=== PATIENT | male | born 1955 | race Caucasian/White ===

== ENCOUNTER → 2017-12-30 16:49 | Outpatient (CLI) | payer OTHER, SELFPAY ==
--- NOTE | 2017-12-30 16:49 | DT_ITS ---
This patient was seen during an EMR downtime December 27, 2017 - January 03, 2018. This patient may have a combination of paper and electronic documentation or all paper documentation. All documentation is viewable within the e-chart portion of [facility] for each patient visit.
--- NOTE | 2017-12-30 16:49 | DT_ITS ---
This patient was seen during an EMR downtime December 27, 2017 - January 03, 2018. This patient may have a combination of paper and electronic documentation or all paper documentation. All documentation is viewable within the e-chart portion of [facility] for each patient visit.
== END ==
PROVIDERS: Visit Provider Anesthesiology Pain Medicine
DX: F11.20 Opioid dependence, uncomplicated (principal)

== ENCOUNTER → 2019-06-27 17:05 | Outpatient (CLI) | payer OTHER, SELFPAY ==
[2019-06-27 17:49] LABS: Amphetamine Urine VISTA NEGATIVE (<1000 ng/mL); Barbiturate Urine VISTA NEGATIVE (< 200 ng/mL); Benzodiazepine Urine VISTA NEGATIVE (< 200 ng/mL); Cocaine Urine VISTA NEGATIVE (< 300 ng/mL); Ecstacy Urine VISTA NEGATIVE (< 500 ng/mL); Methadone Urine VISTA NEGATIVE (< 300 ng/mL); PCP Urine VISTA NEGATIVE (< 25 ng/mL); THC Urine VISTA NEGATIVE (< 50 ng/mL); Vista UDS pH Range 6
== END ==
PROVIDERS: Family Provider Family Medicine; PCP Family Medicine; Referring Provider Anesthesiology Pain Medicine; Visit Provider Anesthesiology Pain Medicine
DX: F11.20 Opioid dependence, uncomplicated (principal)
CPT/HCPCS: 80307

== ENCOUNTER → 2020-03-04 14:54 | Outpatient (CLI) | payer OTHER, SELFPAY ==
[2020-03-04 16:21] LABS: Amphetamine Urine VISTA NEGATIVE (<1000 ng/mL); Barbiturate Urine VISTA NEGATIVE (< 200 ng/mL); Benzodiazepine Urine VISTA NEGATIVE (< 200 ng/mL); Cocaine Urine VISTA NEGATIVE (< 300 ng/mL); Ecstacy Urine VISTA NEGATIVE (< 500 ng/mL); Methadone Urine VISTA NEGATIVE (< 300 ng/mL); PCP Urine VISTA NEGATIVE (< 25 ng/mL); THC Urine VISTA NEGATIVE (< 50 ng/mL); Vista UDS pH Range 6
== END ==
PROVIDERS: PCP Family Medicine; Referring Provider Anesthesiology Pain Medicine; Visit Provider Anesthesiology Pain Medicine
DX: F11.20 Opioid dependence, uncomplicated (principal)
CPT/HCPCS: 80307

== ENCOUNTER → 2020-12-02 11:02 | Outpatient (CLI) | payer OTHER, SELFPAY ==
[2020-12-02 13:13] LABS: Amphetamine Urine VISTA NEGATIVE (<1000 ng/mL); Barbiturate Urine VISTA NEGATIVE (< 200 ng/mL); Benzodiazepine Urine VISTA NEGATIVE (< 200 ng/mL); Cocaine Urine VISTA NEGATIVE (< 300 ng/mL); Ecstacy Urine VISTA NEGATIVE (< 500 ng/mL); Methadone Urine VISTA NEGATIVE (< 300 ng/mL); PCP Urine VISTA NEGATIVE (< 25 ng/mL); THC Urine VISTA NEGATIVE (< 50 ng/mL); Vista UDS pH Range 6
== END ==
PROVIDERS: PCP Family Medicine; Referring Provider Anesthesiology Pain Medicine; Visit Provider Anesthesiology Pain Medicine
DX: F11.20 Opioid dependence, uncomplicated (principal)
CPT/HCPCS: 80307

== ENCOUNTER → 2022-09-08 | Outpatient (CLI) | payer OTHER, SELFPAY ==
[2022-09-08 17:15] LABS: Amphetamine Urine VISTA NEGATIVE (<1000 ng/mL); Barbiturate Urine VISTA NEGATIVE (< 200 ng/mL); Benzodiazepine Urine VISTA NEGATIVE (< 200 ng/mL); Cocaine Urine VISTA NEGATIVE (< 300 ng/mL); Ecstacy Urine VISTA NEGATIVE (< 500 ng/mL); Methadone Urine VISTA NEGATIVE (< 300 ng/mL); PCP Urine VISTA NEGATIVE (< 25 ng/mL); THC Urine VISTA NEGATIVE (< 50 ng/mL); Vista UDS pH Range 6
== END | disposition home or self-care (01) ==
PROVIDERS: PCP Family Medicine; Visit Provider Anesthesiology Pain Medicine
DX: F11.20 Opioid dependence, uncomplicated (principal)
CPT/HCPCS: 80307

== ENCOUNTER → 2023-08-04 | Outpatient (CLI) | payer OTHER, SELFPAY ==
--- OUTSIDE RECORDS SUMMARY | 2023-08-04 17:08 | XMS RPT_ITS | CCD ---
Author Name Unknown Address [address] [place] [address] Organization [facility] Care Team Providers Care Vp Public Relations Name Role Phone SHAYNE RIBEIRO Unavailable Unavailable BLSHAYNE TIM Unavailable Unavailable Unavailable Primary Care Provider Shayne Ruiz DO Primary Care Provider MARY LAMBERT Attending Cee vailable MATMARY NOLAN Attending Cee vailable SHAYNE RIBEIRO Admitting Unavailable MATURMARY Monae Attending Cee vailable SHAYNE RIBEIRO Referring Unavailable NOELLE, SHAYNE Wing Primary Care Unavailable RANDALLUMERSHAYNE Primary Care Unavailable SHAYNE RIBEIRO Attending Unavailable BLUMER, SHAYNE Wing Referring Unavailable BLUMER, SHAYNE Wing Referring Unavailable BLUMER, SHAYNE Wing Admitting Unavailable SHAYNE RIBEIRO Primary Care Unavailable SHAYNE RIBEIRO Attending Unavailable SHAYNE RIBEIRO Referring Unavailable SHAYNE RIBEIRO Primary Care Unavailable Allergies Allergy Classification Reported Allergen(s) Allergy Type Date of Onset Reaction(s) Facility (3 sources) Iodine; Translations: [IODINE] Drug Allergy 0 [facility] (1 source) CT: IODINATED CONTRAST- ORAL AND IV DYE; Translations: [CT: IODINATED CONTRAST- ORAL AND IV DYE] Propensity to adverse reactions to drug (disorder) 2 [facility] Three Repository Medications Current Medications Medication Drug Class(es) Dates Sig (Normalized) Sig (Original) acetaminophen 325 mg / oxyCODONE hydrochloride 5 mg oral tablet (2 sources) Opioid Agonist Start: 07-16-2021 oxyCODONE-acetam inophen (PERCOCET) 5-325 mg per tablet amLODIPine 5 mg oral tablet (2 sources) Dihydropyridine Calcium Channel Mana Start: 07-24-2021 amLODIPine (NORVASC) 5 MG tablet finasteride 5 mg oral tablet (2 sources) 5-alpha Reductase Inhibitor Start: 07-24-2021 finasteride (PROSCAR) 5 mg tablet ibuprofen 200 mg oral tablet (2 sources) Nonsteroidal Anti-inflammatory Drug take 1 tablet by mouth every six hours as needed for pain ibuprofen (ADVIL,MOTRIN) 200 MG tablet Take 200 mg by mouth every 6 (six) hours as needed for pain . 0 Active losartan potassium 100 mg oral tablet (2 sources) Angiotensin 2 Receptor Mana Start: 07-24-2021 losartan (COZAAR) 100 MG tablet morphine sulfate 15 mg extended release oral tablet (2 sources) Opioid Agonist Start: 07-16-2021 morphine (MS CONTIN) 15 MG 12 hr tablet omeprazole 20 mg delayed release oral capsule (2 sources) Proton Pump Inhibitor take 1 capsule by mouth once daily omeprazole (PRILOSEC) 20 MG capsule Take 20 mg by mouth daily . 0 Active tamsulosin hydrochloride 0.4 mg oral capsule (2 sources) alpha-Adrenergic Mana Start: 07-24-2021 tamsulosin (FLOMAX) 0.4 mg capsule Problems Problem Classification Problem Date Documented Date Episodic/Chronic Abdominal pain (5 sources) Right upper quadrant pain; Translations: [Right upper quadrant pain] Onset: 07-31-2021 Episodic Esophageal disorders (1 source) Gastroesophageal reflux disease; Translations: [Gastro-esophageal reflux disease without esophagitis] Chronic Essential hypertension (1 source) Hypertensive disorder; Translations: [Essential (primary) hypertension] Chronic Genitourinary symptoms and ill-defined conditions (2 sources) Hematuria, unspecified; Translations: [Hematuria, unspecified] Onset: 06-18-2023 Episodic Other screening for suspected conditions (not mental disorders or infectious disease) (4 sources) Raised prostate specific antigen; Translations: [Elevated prostate specific antigen [PSA]] Onset: 07-31-2021 Episodic Results Test Name Value Interpretation Reference Range Facil ity Vital Signs Date Time Vital Sign Value Performing Clinician Rayray harding 07-30-2021 13:17-0500 Body weight 92.99 kg Mary Lambert MD Work Phone: [facility] Encounters Encounter Date Encounter Type Care Provider Facility Start: 06-18-2023 End: 06-19-2023 ambulatory SHAYNE RIBEIRO [facility] Start: 04-09-2023 End: 04-13-2023 Encounter for general adult medical examination without abnormal findings SHAYNE RIBEIRO [facility] Start: 04-09-2023 End: 04-13-[address] [facility] Start: 07-30-2021 End: 07-30-2021 Orders Only Mary Lambert MD Work Phone: [facility] Plan of Treatment Date Care Activity Detail Author Start: 09-26-2021 End: 09-26-2021 Admission to same day surgery center 09/26/2021 Surgery Mary Lambert MD [address] [place] [address] COLONOSCOPY with possible biopsy [facility] Payers Date Payer Category Payer Unknown [employer] PPO [id number] 2018-Present [phone] [address] [place] [address] [id number] 2018 Unknown [id number] 2017 Private Health Insurance [id number] 1955 Unknown [id number] 03 1955 Unknown [id number] 03 1955 Unknown [id number] 03 1955 Unknown [id number] 03 1955 Unknown [id number] 03 Social History Date Type Detail Facility Tobacco smoking status WAIS Unknown if ev er smoked [facility] Start: 1955 Sex Assigned At Not on [facility] 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 [facility] Exposure to SARS-CoV -2 (event) Not sure [facility] History of Present illness Narrative 07-30-2021 Mary Lambert MD - 07/30/2021 4:05 PM EST Note Date & Type Note Facility 07-30-2021 History of Presen t illness Narrative [facility] [phone] Timothy Torre History: HISTORY OF PRESENT ILLNESS This 66-year-old gentleman has been having discomfort in the right upper quadrant area for the last 2 years. This pain is just below the right ribcage or in the right lower ribcage. The pain comes and goes and sometimes becomes more frequent. The pain is more so in the morning. The pain does not appear to change with food intake. He has no nausea, denies any vomiting. He says that he was treated for H. pylori many years ago. Has heartburn with reflux symptoms for some time. His bowel movements have been on the constipated side. Denies having any black tarry stools. Denies seeing any blood with his stools. SOCIAL HISTORY He does not smoke, does not take alcohol. FAMILY HISTORY Shows that his father had fatty liver. PAST MEDICAL HISTORY Reviewed with the patient. PAST SURGERY Reviewed with the patient. MEDICATIONS Reviewed with patient. DIAGNOSTIC DATA His LFTs done in January 2020 were normal. His PSA was 7.2 at that time. He says that he has had followup PSA, and it is less than this. Note: I do not have the report of this. He has been seen by [facility]rology [facility] at [facility]. He says that he had a colonoscopy done about 10 years ago. IMPRESSION 1. Right upper quadrant pain, etiology unclear at this time. 2. Hypertension. 3. Elevated PSA. 4. Gastroesophageal reflux disease. ADVICE 1. Will advise him to take omeprazole 20 mg twice a day. 2. Will schedule him for upper endoscopy and a screening colonoscopy. 3. Will get an ultrasound of the right upper quadrant to check the liver and the duct system. Past Medical History: Diagnosis Date Hypertension Past Surgical History: Procedure Laterality Date BACK SURGERY CHOLECYSTECTOMY Allergies Allergen Reactions Iodine Hives Prior to Admission medications Medication Sig Start Date End Date Taking? Authorizing Provider amLODIPine (NORVASC) 5 MG tablet 07/24/21 Yes Historical Provider, finasteride (PROSCAR) 5 mg tablet 07/24/21 Yes Historical Provider, ibuprofen (ADVIL,MOTRIN) 200 MG tablet Take 200 mg by mouth every 6 (six) hours as needed for pain . Yes Historical Provider, losartan (COZAAR) 100 MG tablet 07/24/21 Yes Historical Provider, morphine (MS CONTIN) 15 MG 12 hr tablet 07/16/21 Yes Historical Provider, omeprazole (PRILOSEC) 20 MG capsule Take 20 mg by mouth daily . Yes Historical Provider, oxyCODONE-acetaminophen (PERCOCET) 5-325 mg per tablet 07/16/21 Yes Historical Provider, tamsulosin (FLOMAX) 0.4 mg capsule 07/24/21 Yes Historical Provider, No family history on file. Review of Systems Constitutional: Negative for unexpected weight change. Respiratory: Negative. Cardiovascular: Negative. Musculoskeletal: Positive for back pain. Neurological: Negative. Psychiatric/Behavioral: Negative. has no history on file for alcohol use. has no history on file for tobacco use. Wt 93 kg (205 lb) 93 kg (205 lb) There is no height or weight on file to calculate BMI. Physical Exam Constitutional: Patient is oriented to person, place, and time. Patient appears well Head: Normocephalic and atraumatic. Eyes: Pupils are equal, round, and reactive to light. Neck: No thyromegaly present. Cardiovascular: Normal rate, rhythm, and normal heart sounds. Exam reveals no friction rub. No murmur heard. Pulmonary/Chest: No respiratory distress. Patient has no wheezes. Abdominal: Soft. Normal appearance and bowel sounds are normal. Patient exhibits no distension and no mass. There is no hepatosplenomegaly. There is no tenderness. There is no rebound. Musculoskeletal: Normal range of motion. Patient exhibits no edema. Neurological: Patient is alert and oriented to person, place, and time. Skin: No rash noted. No erythema. Mary Lambert MD documented in this encounter [facility] Evaluation note Note Date & Type Note Facility documented in this encounter [facility] Evaluation note Note Date & Type Note Facility documented in this encounter [facility] Evaluation note Note Date & Type Note Facility documented in this encounter [facility] Evaluation note Note Date & Type Note Facility documented in this encounter [facility] Summary Purpose Family History No Family History Records FoundNo Family History Records FoundNo Family History Records Found Advance Directives No Advanced Directives Records FoundDocuments on File Type Date Recorded Patient Financial Aid Manager Expl anation Advance Directives and Livin g Will 06/06/2021 2:51 PM Documents on File Type Date Recorded Patient Financial Aid Manager Expl anation Advance Directives and Livin g Will 06/06/2021 2:51 PM Reason for Referral Status Reason Specialty Diagnoses / Procedures Referred By Contact Referred To Contact Pending Review Specialty Services Required/Patie nt's Best Interest Gastroenterology Diagnoses Right upper quadrant abdominal pain System, Provider Not In Mary Lambert MD [address] [place], [place] [id number] Specialty Diagnoses / Procedures Referred By Contac t Referred To Contact Gastroenterology Diagnoses RUQ pain Shayne Ribeiro, [address] [place] [address] Mary Lambert MD [address] [place] [id number] Referral ID Status Reason Start Date Expiration Date Visits Requested Visits Authorized [id number] Pending Review Specialty Services Required/Pat ient's Best Interest 05/27/2021 05/27/2022 1 1 Specialty Diagnoses / Procedures Referred By Contdenise t Referred To Contact Radiology Diagnoses RUQ pain Procedures US Abdomen Limited Study Mary Lambert MD [address] [place] [id number] Referral ID Status Reason Start Date Expiration Date V isits Requested Visits Authorized [id number] Pending Review 07/30/2021 07/30/2022 1 1 Additional Source Comments (unrecognized sect ion and content) No Status Records FoundNo Status Records FoundNo Status Records Found INFORMATION SOURCE (unrecogn ized section and content) DATE CREATED AUTHOR AUTHOR'S ORGANIZ ATION 07/31/2021 [facility] DATE CREATED AUTHOR AUTHOR'S ORGANIZ ATION 06/20/2023 [facility] Reason for Visit (unrecogniz ed section and content) Specialty Diagnoses / Procedures Referred By Contdenise t Referred To Contact Gastroenterology Diagnoses RUQ pain Shayne Ribeiro DO [address] [place] [address] Mary Lambert MD [facility] [place] [address] Referral ID Status Reason Start Date Expiration Date Visits Requested Visits Authorized [id number] Pending Review Specialty Services Required/Pat ient's Best Interest 05/27/2021 05/27/2022 1 1 Care Teams (unrecognized sec tion and content) Vp Public Relations Relationship Specialty Start Date End Date Shayne Ribeiro DO [address] [place] [address] PCP - General Family Medicine 06/06/21 FOR RECORDS PERTAINING TO PATIENTS WHO ARE OR HAVE BEEN ENROLLED IN A CHEMICAL DEPENDENCY/SUBSTANCEABUSE PROGRAM, SOME INFORMATION MAY BE OMITTED. This clinical summary was aggregated from multiple sources. Caution should be exercised in using it in the provision of clinical care. This summary normalizes information from multiple sources, and as a consequence, information in this document may materially change the coding, format and clinical context of patient data. In addition, data may be omitted in some cases. CLINICAL DECISIONS SHOULD BE BASED ON THE PRIMARY CLINICAL RECORDS. [email or web address] provides no warranty or guarantee of the accuracy or completeness of information in this document.
[2023-08-04 17:56] LABS: Amphetamine Urine VISTA NEGATIVE (<1000 ng/mL); Barbiturate Urine VISTA NEGATIVE (< 200 ng/mL); Benzodiazepine Urine VISTA NEGATIVE (< 200 ng/mL); Cocaine Urine VISTA NEGATIVE (< 300 ng/mL); Ecstacy Urine VISTA NEGATIVE (< 500 ng/mL); Methadone Urine VISTA NEGATIVE (< 300 ng/mL); PCP Urine VISTA NEGATIVE (< 25 ng/mL); THC Urine VISTA NEGATIVE (< 50 ng/mL); Vista UDS pH Range 6
== END | disposition home or self-care (01) ==
LOC: LAB 17:05
PROVIDERS: PCP Family Medicine; Referring Provider Anesthesiology Pain Medicine; Visit Provider Anesthesiology Pain Medicine
DX: F11.20 Opioid dependence, uncomplicated (principal)
CPT/HCPCS: 80307

== ENCOUNTER → 2024-05-10 | Outpatient (CLI) | payer OTHER, SELFPAY ==
[2024-05-10 16:48] LABS: Amphetamine Urine VISTA NEGATIVE (<1000 ng/mL); Barbiturate Urine VISTA NEGATIVE (< 200 ng/mL); Benzodiazepine Urine VISTA NEGATIVE (< 200 ng/mL); Cocaine Urine VISTA NEGATIVE (< 300 ng/mL); Ecstacy Urine VISTA NEGATIVE (< 500 ng/mL); Methadone Urine VISTA NEGATIVE (< 300 ng/mL); PCP Urine VISTA NEGATIVE (< 25 ng/mL); THC Urine VISTA NEGATIVE (< 50 ng/mL); Vista UDS pH Range 6
== END | disposition home or self-care (01) ==
PROVIDERS: PCP Family Medicine; Referring Provider Anesthesiology Pain Medicine; Visit Provider Anesthesiology Pain Medicine
DX: F11.20 Opioid dependence, uncomplicated (principal)
CPT/HCPCS: 80307

== ENCOUNTER → 2025-07-05 | Outpatient (CLI) | payer OTHER, SELFPAY ==
--- NOTE | 2025-07-05 13:26 | RAD_ITS ---
PROCEDURE: LUMBAR SPINE 2 OR 3 VIEWS 07/05/2025 REASON FOR EXAM: POSTLAMINECTOMY SYNDROME, NOT ELSEWHERE CLASSIFIED TECHNIQUE: Procedure Code: RADSPLL Modality: DX Procedure: LUMBAR SPINE 2 OR 3 VIEWS COMPARISON: None. FINDINGS: Vertebral body heights: Pedicle screws and rods L5-S1. Negative for fracture. Alignment: Normal. Disc spaces: Severe degenerative disc disease at L5-S1. Lesser degenerative disc disease L4-5 and L3-L4.. Facet joints: Moderate facet joint hypertrophy of the lower lumbar spine. Soft tissues: Adjacent soft tissues negative. Other: Normal amount of stool in the imaged colon. RAD/Lumbar Spine 2 or 3 Views IMPRESSION: L5-S1 lumbar spine fusion. Grade 1 spondylolisthesis L5 respect to S1. Degenerative changes of the mid to lower lumbar spine. Reading Location: [id number]
== END | disposition home or self-care (01) ==
LOC: RAD 13:26
PROVIDERS: PCP Family Medicine; Referring Provider Anesthesiology Pain Medicine; Visit Provider Anesthesiology Pain Medicine
DX: M96.1 Postlaminectomy syndrome, not elsewhere classified (principal)
CPT/HCPCS: 72100